=== PATIENT | male | born 1990 | race Caucasian/White ===

== ENCOUNTER 2017-10-18 16:38 | Emergency (ER) | payer OTHER ==
[~2017-10-18] VITALS: Ht 170.2 cm; Wt 86.6 kg
[2017-10-18] MEDS ORDERED: NACL 0.9% 1,000 ML IV ONE (16:41)
[2017-10-18] MEDS ORDERED: ONDANSETRON HCL 4 MG/2 ML VIAL IVP ONE (16:45)
[2017-10-18 16:55] VITALS: BP_SYST 155
[2017-10-18 17:04] LABS: HEMATOCRIT 47.1 % (36-54); HEMOGLOBIN 15.7 g/dL (14.0-18.0); MEAN CORPUSCULAR HEMOGLOBIN 28 pg (27-31); MEAN CORPUSCULAR HGB CONC 33 % (32-36); MEAN CORPUSCULAR VOLUME 84 fL (79.0-98.0); PLATELET COUNT (AUTO) 249 K/uL (130-430); RED BLOOD CELL COUNT(AUTO) 5.61 MIL/uL (4.2-6.2); RED CELL DISTRIBUTION WIDTH 12.6 % (9.0-15.0); WHITE BLOOD COUNT (AUTO) 7.4 K/uL (4.8-10.8)
[2017-10-18 17:14] LABS: CALCIUM 8.7 mg/dL (8.4-11.0); CREATININE 1.13 mg/dL (0.55-1.30); POTASSIUM 3.5 mmol/L (3.5-5.1)
[2017-10-18 17:16] LABS: PROTHROMBIN TIME 10.1 SECS (9.5-12.5)
[2017-10-18 17:20] LABS: ALBUMIN 3.9 g/dL (3.4-4.8); TOTAL BILIRUBIN 0.5 mg/dL (0.0-1.0)
[2017-10-18 17:37] LABS: BAND % (MANUAL) 0 % (0-6); BASOPHILS % (MANUAL) 0 % (0-2); EOSINOPHILS % (MANUAL) 1 % (0-7); LYMPHOCYTES % (MANUAL) 46 % (20-46); MONOCYTES % (MANUAL) 9 % (0-11)
[2017-10-18 17:58] LABS: BILIRUBIN,URINE NEGATIVE (NEGATIVE); BLOOD, URINE NEGATIVE (NEGATIVE); CLARITY/URINE CLEAR (CLEAR); COLOR,URINE YELLOW (YELLOW); GLUCOSE,URINE NEGATIVE (NEGATIVE); KETONES,URINE NEGATIVE (NEGATIVE); LEUKOCYTE ESTERASE ,URINE NEGATIVE (NEGATIVE); NITRITE, URINE NEGATIVE (NEGATIVE); PROTEIN URINE NEGATIVE (NEGATIVE); UROBILINOGEN,URINE 0.2 (0.2-1.0)
[2017-10-18 18:09] LABS: BARBITURATE, URINE NEGATIVE (NEG <=200); BENZODIAZEPINE, URINE NEGATIVE (NEG <=150); CANNABINOID, URINE NEGATIVE (NEG <=50); COCAINE, URINE NEGATIVE (NEG <=150); METHAMPHETAMINES SCREEN,URINE NEGATIVE (NEG <=500); OPIATE, URINE NEGATIVE (NEG <=100); PHENCYCLIDINE SCREEN,URINE NEGATIVE (NEG <=25); UR TRICYCLIC ANTIDEPRESSANTS NEGATIVE (NEG <=300); URINE AMPHETAMINE NEGATIVE (NEG <=500); URINE METHADONE NEGATIVE (NEG <=200); URINE OXYCODONE SCREEN NEGATIVE (NEG <=100); URINE PROPOXYPHENE SCREEN NEGATIVE (NEG <=300)
== END 2017-10-18 19:35 | disposition home or self-care (01) ==
LOC: SED 16:38
DX: R42 Dizziness and giddiness (principal); K85.90 Acute pancreatitis without necrosis or infection, unspecified; R74.8 Abnormal levels of other serum enzymes
CPT/HCPCS: 36415; 71045; 80053; 80307; 81003; 82150; 82550; 83690; 85007; 85027; 85610; 85730; 93005; 96361; 96374; 99285; G0482; J2405; J7030